=== PATIENT | female | born 1945 | race Caucasian/White ===

== ENCOUNTER → 2018-05-20 13:26 | Outpatient (CLI) | payer MEDICARE, BC, SELFPAY ==
[2018-05-20 16:24] LABS: Hep C Virus Ab w/Reflex Quant NEGATIVE s/c (NEGATIVE)
== END ==
PROVIDERS: PCP Internal Medicine; Visit Provider Internal Medicine
DX: M85.852 Other specified disorders of bone density and structure, left thigh (principal); Z78.0 Asymptomatic menopausal state; E07.9 Disorder of thyroid, unspecified; Z82.62 Family history of osteoporosis; R29.890 Loss of height; R94.5 Abnormal results of liver function studies
CPT/HCPCS: 36415; 77080; 86803

== ENCOUNTER → 2019-05-14 19:01 | Outpatient (CLI) | payer MEDICARE, BC, SELFPAY | PROVIDERS: PCP Internal Medicine; Visit Provider Physician Assistant | DX: J02.9 Acute pharyngitis, unspecified (principal) | CPT/HCPCS: 87070 ==

== ENCOUNTER → 2019-06-05 10:51 | Outpatient (CLI) | payer MEDICARE, BC, SELFPAY ==
--- NOTE | 2019-06-05 | DI.MG.S_ITS ---
BILATERAL DIGITAL SCREENING MAMMOGRAM 3D/2D WITH CAD: 06/05/2019 CLINICAL: Routine screening. Comparison is made to exams dated: 04/03/2017 mammogram, 03/22/2017 mammogram, 10/13/2015 mammogram, and 02/12/2012 mammogram - [facility]. There are scattered fibroglandular elements in both breasts. Current study was also evaluated with a Computer Aided Detection (CAD) system. There is an asymmetry in the right breast posterior depth lateral region seen on the craniocaudal view only. Finding is best noted on tomographic CC slice 21/57. There is possible architectural distortion associated with the asymmetry. No other significant masses, calcifications, or other findings are seen in either breast. IMPRESSION: INCOMPLETE: NEEDS ADDITIONAL IMAGING EVALUATION The asymmetry in the right breast is indeterminate. Additional views with possible ultrasound are recommended. This exam was interpreted at Station ID: [id number]. NOTE: For mammograms, a report in lay terms will be sent to the patient. Approximately 15% of breast malignancies will not be visualized mammographically. In the management of a palpable breast mass, a negative mammogram must not discourage biopsy of a clinically suspicious lesion. Electronically Signed By: Deandre Leal M.D. ecl/:06/06/2019 01:05:53 letter sent: Additional Imaging Needed ACR BI-RADS Category 0: Incomplete [id number]
== END ==
PROVIDERS: PCP Internal Medicine; Visit Provider Internal Medicine
DX: Z12.31 Encounter for screening mammogram for malignant neoplasm of breast (principal)
CPT/HCPCS: 77063; 77067

== ENCOUNTER → 2019-06-24 14:27 | Outpatient (CLI) | payer MEDICARE, BC, SELFPAY ==
--- NOTE | 2019-06-24 | DI.US.S_ITS ---
LIMITED ULTRASOUND OF RIGHT BREAST: 06/24/2019 CLINICAL: Additional evaluation requested from prior study. Comparison is made to exams dated: 06/24/2019 mammogram, 06/05/2019 mammogram, 04/03/2017 ultrasound, 04/03/2017 mammogram, 03/22/2017 mammogram, and 10/13/2015 mammogram - [facility]. Color flow and real-time ultrasound of the right breast 7-11 o'clock region were performed. Carballo scale images of the real-time examination were reviewed. No underlying breast mass or abnormality is identified. There is no ultrasound correlate for the previously noted asymmetry in the right breast posterior depth lateral region seen on the craniocaudal view only on comparison screening mammograms of 06/05/19, which persisted on additional views performed immediately prior to this exam on 06/24/19. IMPRESSION: PROBABLY BENIGN No ultrasound correlate for the asymmetry in the right breast posterior depth lateral region seen on screening and diagnostic mammography. A follow-up mammogram and possible ultrasound in 6 months is recommended to demonstrate stability. The patient is advised to monitor her breasts and to return sooner for re-evaluation should she feel anything grow or change. This exam was interpreted at Station ID: [id number]. Electronically Signed By: Deandre Leal M.D. ecl/:06/24/2019 15:37:52 letter sent: Followup Recommended Ultrasound BI-RADS: 3 Probably benign
--- NOTE | 2019-06-24 | DI.MG.S_ITS ---
UNILATERAL RIGHT DIGITAL DIAGNOSTIC MAMMOGRAM 3D/2D WITH ADDITIONAL VIEWS: 06/24/2019 CLINICAL: Additional evaluation requested from prior study. Comparison is made to exams dated: 06/05/2019 mammogram, 04/03/2017 mammogram, 03/22/2017 mammogram, and 04/03/2017 [facility]. There are scattered fibroglandular elements in right breast. Previously identified asymmetry in the right breast posterior depth lateral region seen on the craniocaudal view only on comparison screening mammograms of 06/05/19 persists with additional views. There is no convincing associated architectural distortion on additional views. IMPRESSION: INCOMPLETE: NEEDS ADDITIONAL IMAGING EVALUATION Previously identified asymmetry in the right breast posterior depth lateral region seen on the craniocaudal view only on comparison screening mammograms of 06/05/19 persists with additional views. A targeted ultrasound is recommended for further evaluation, and will be performed immediately following this exam. This exam was interpreted at Station ID: [id number]. NOTE: For mammograms, a report in lay terms will be sent to the patient. Approximately 15% of breast malignancies will not be visualized mammographically. In the management of a palpable breast mass, a negative mammogram must not discourage biopsy of a clinically suspicious lesion. Electronically Signed By: Deandre Leal M.D. ecl/:06/24/2019 15:19:37 ACR BI-RADS Category 0: Incomplete [id number]
== END ==
PROVIDERS: PCP Internal Medicine; Visit Provider Internal Medicine
DX: R92.8 Other abnormal and inconclusive findings on diagnostic imaging of breast (principal); N64.89 Other specified disorders of breast
CPT/HCPCS: 76642; 77065; G0279

== ENCOUNTER 2019-07-03 13:18 | Day surgery (SDC) | payer MEDICARE, BC, SELFPAY ==
--- NOTE | 2019-07-03 | PATH_ITS ---
[facility] Accession Number: [id number] . 01 Material submitted: . gastrointestinal site - BIOPSY OF JUANKI RING AT 35 CM . 01 Clinical history: . DYSPHAGIA, UNSPECIFIED . 02 Diagnosis: Biopsy of Schatzki Ring at 35 cm: Fragments of squamous epithelium with nonspecific reactive changes, negative for significant atypia. Minute fragments of glandular epithelium, negative for atypia. Negative for specialized metaplasia of Cevallos's type esophagus. Negative for squamous intraepithelial eosinophils. MRV/07/04/2019 . 02 Electronically signed: . Alex Haines MD, Pathologist NPI- [id number] . 01 Gross description: . BIOPSY OF SCHATZKI RING AT 35 CM: Received in formalin are 2 fragment(s) of manuel, soft tissue measuring 0.1 x 0.1 x 0.1 cm to 0.2 x 0.1 x 0.1 cm which is entirely submitted and submitted entirely in 1 cassette(s) /DMC /DMC . 02 Pathologist provided ICD-10: R13.10 . 02 CPT . 699797 Performed at: 01 [facility] [address], [place], [place] [id number] MD Deonte Palmer MD Phone: [phone] Performed at: 02 [facility] [address] [place], [place] [id number] MD Noa Kumar MD Phone: [phone]
[2019-07-03 13:48] VITALS: BP 120/80; PULSE 77; RESP 12; TEMP 36.9; O2SAT 96; BMI 23.9
--- NOTE | 2019-07-03 14:10 | PM.PREOP ---
Pre-operative Note Interval Note History & Physical reviewed/Exam performed by Physician: Yes Changes to H&P: No ASA Class (for procedural sedation): II
[2019-07-03] MEDS: SODIUM CHLORIDE 0.9% 1,000 ML 200 ML IV (14:13)
[2019-07-03] MEDS: LIDOCAINE 4% SOLN 50 ML 20 ML TOP (14:25)
[2019-07-03] MEDS: fentaNYL 250 MCG/5 ML INJ IV (14:30)
[2019-07-03] MEDS: MIDAZOLAM 5 MG/5 ML VIAL IV ×2 (14:30→14:45)
--- NOTE | 2019-07-03 14:56 | PM.OP.ENDO ---
Operative Date/Time/Diagnoses Date of procedure: 07/03/19 Time of procedure: 14:56 Pre-op diagnosis: Schatzki ring Post-op diagnosis: same Procedure & Clinicians Study performed: Esophagoduodenoscopy Same procedure as scheduled: Yes Indications: The patient is a 73-year-old woman with a history of a hiatal hernia and gastroesophageal reflux wound secondarily developed a Schatzki ring. She was previously dilated 2 years ago and recently had an episode of of food impaction she. She presents for EGD and dilation. Surgeon: Josh Llanos Procedure Notes SCOAP/Timeout: performed Procedure in detail: The scope was carefully inserted into the mouth and passed into the posterior oropharynx. The scope was carefully advanced down the esophagus and into the stomach. The stomach was inspected and the pylorus was intubated. There was no evidence of ulceration. The scope was retroflexed within the stomach an that demonstrated a hiatal hernia. The scope was carefully withdrawn into the distal esophagus where a Schatzki ring was identified at 35 cm. Several biopsies of the ring taken with forceps. There was stenosis at the ring however it was able to accommodate the caliber of the scope. We selected a 20 mm esophageal pneumatic dilator. The balloon placed through the ring and then insufflated and held. After desufflating the balloon the ring was examined and there were some small mucosal tears in the ring consistent with dilation. The tissue was found to be hemostatic. The stomach was desufflated and the scope was carefully withdrawn. Sedation minutes: 27 Findings: hiatal hernia and stricture (Schatzki ring 35 cm from incisiors) Specimen(s): other (Schatzki ring ) Impression: Schatzki ring, hiatal hernia Post-procedure Recommendations: Reflux diet Follow up: as needed Disposition: same day surgery
[2019-07-03 15:03] VITALS: BP 129/78; PULSE 80; RESP 15; TEMP 35.7; O2SAT 95
[2019-07-03 15:08] VITALS: BP 136/76; PULSE 78; RESP 20; O2SAT 94
[2019-07-03 15:23] VITALS: BP 117/69; PULSE 73; RESP 12; TEMP 36.3; O2SAT 99
--- NOTE | 2019-07-03 15:35 | SUR.PHASEII ---
1523 pt reported 3/10 abd pain. Abd soft. Call light wthin reach. Spouse at bedside.
== END 2019-07-03 15:45 | disposition home or self-care (01) ==
PROVIDERS: PCP Internal Medicine; Visit Provider Surgery
PROC: 0DJ08ZZ Inspection of Upper Intestinal Tract, Via Natural or Artificial Opening Endoscopic (ICD-10-PCS; CPT 43235; principal; 2019-07-03 14:30)
DX: K22.2 Esophageal obstruction (principal); E11.9 Type 2 diabetes mellitus without complications; Z79.84 Long term (current) use of oral hypoglycemic drugs; K21.9 Gastro-esophageal reflux disease without esophagitis; K44.9 Diaphragmatic hernia without obstruction or gangrene
CPT/HCPCS: 43249; 88305; 99152; J2250; J3010

== ENCOUNTER 2019-07-16 08:38 | Emergency (ER) | payer MEDICARE, BC, SELFPAY ==
[2019-07-16 08:43] VITALS: BP 153/80; PULSE 61; RESP 15; TEMP 36.2; O2SAT 99; BMI 23.6
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
== END 2019-07-16 09:39 | disposition home or self-care (01) ==
PROVIDERS: Emergency Provider Emergency Medicine; PCP Internal Medicine
DX: S09.90XA Unspecified injury of head, initial encounter (principal); V18.0XXA Pedal cycle driver injured in noncollision transport accident in nontraffic accident, initial encounter
CPT/HCPCS: 99282

== ENCOUNTER 2019-07-22 06:52 | Day surgery (SDC) | payer MEDICARE, BC, SELFPAY ==
[2019-07-22] MEDS: PROPARACAINE 0.5% OPHTH SOL 2 DROPS EYE-OP (07:12)
[2019-07-22] MEDS: CATARACT EYE COMPOUND (10 DROPS/SYRINGE) 3 DROPS EYE-OP (07:52)
[2019-07-22 07:58] VITALS: BP 123/72; PULSE 71; RESP 99; TEMP 36.6; BMI 23.6
--- NOTE | 2019-07-22 08:52 | PM.PREOP ---
Pre-operative Note Interval Note History & Physical reviewed/Exam performed by Physician: No Changes to H&P: No
--- NOTE | 2019-07-22 08:52 | PM.OP.1 ---
Operative Date/Time/Diagnoses Pre-op diagnosis: Nuclear cataract right eye Procedure & Clinicians Procedure: Cataract Surgery Same procedure as scheduled: Yes Surgeon: Kirk Marrero Anesthesia Type: MAC +/- and Sedation Operative Notes Procedure in detail: Patient brought to the operating suite. Tetracaine drops placed in the right eye. Patient was prepped and draped in sterile manner. Wire lid speculum was placed in the eye. Betadine drops were placed on the eye. This was irrigated. Lidocaine jelly was placed on the eye. A paracentesis port was created with a side-port blade. 0.1 mL 1% preservative free lidocaine was injected into the anterior chamber. The anterior chamber was deepened with viscoelastic. 2.6 mm keratome was used to create a temporal clear corneal incision. Cystotome and Utrata forceps were used to create continuous tear capsulorrhexis. Balanced salt solution was used to hydro dissect the nucleus. The Miloop was used to crack the nucleous. The phacoemulsification handpiece was inserted and the nucleus was removed using the stop and chop technique. The irrigation aspiration handpiece was inserted and the remaining cortex was removed. Anterior chamber was deepened with viscoelastic. An Vincent ZCB00 intraocular lens with a power of 17.0 was injected into the capsular bag. Irrigation aspiration handpiece was inserted and the remaining viscoelastic was removed. Incision was hydrated with balanced salt solution and found to be leak free with pressure with Weck-Vandana sponges. 0.1 mL Vigamox injected anterior chamber. 0.3 mL Kenalog 10 mg was injected subconjunctivally. Lid speculum was removed. The patient left the operating room in excellent condition. Complications: none Post-operative Condition: stable Disposition: same day surgery
[2019-07-22] MEDS: LIDOCAINE JELLY 2% 5 ML 1 APPLIC TOP (09:17)
[2019-07-22] MEDS: MOXIFLOXACIN INJ 5 MG/ML VIAL EYE-OP (09:17)
[2019-07-22] MEDS: CHONDROIDTIN/SOD HYALURONATE 1.05 ML SYRINGE INTRAOCULA (09:17)
[2019-07-22] MEDS: BALANCED SALT IRRIG SOLN NO.2 500 ML, EPINEPHrine 1 MG IRR (09:18)
[2019-07-22] MEDS: TRIAMCINOLONE 50 MG/5 ML VIAL INJ (09:18)
[2019-07-22] MEDS: PHENYLEPHRINE/LIDOCAINE VIAL (OR) 0.2 ML EYE-OP (09:18)
[2019-07-22] MEDS: TETRACAINE 0.5% OPHTH DROPS 4 ML 2 DROPS EYE-OP (09:18)
[2019-07-22 09:25] VITALS: BP 109/73; PULSE 71; RESP 16; TEMP 36.8; O2SAT 99
== END 2019-07-22 09:39 | disposition home or self-care (01) ==
LOC: OR 06:53
PROVIDERS: PCP Internal Medicine; Visit Provider Ophthalmology
PROC: (CPT 66984; principal; 2019-07-22 08:45)
DX: H25.11 Age-related nuclear cataract, right eye (principal); E11.9 Type 2 diabetes mellitus without complications; Z79.84 Long term (current) use of oral hypoglycemic drugs
CPT/HCPCS: 66984; J0171; J2250; J3010; J3301

== ENCOUNTER 2019-07-29 06:22 | Day surgery (SDC) | payer MEDICARE, BC, SELFPAY ==
[2019-07-29] MEDS: PROPARACAINE 0.5% OPHTH SOL 2 DROPS EYE-OP (07:14)
[2019-07-29] MEDS: CATARACT EYE COMPOUND (10 DROPS/SYRINGE) 3 DROPS EYE-OP ×3 (07:15→07:28)
[2019-07-29 07:23] VITALS: BP 133/78; PULSE 79; RESP 16; TEMP 36.4; O2SAT 99; BMI 24.3
--- NOTE | 2019-07-29 07:37 | PM.PREOP ---
Pre-operative Note Interval Note History & Physical reviewed/Exam performed by Physician: No Changes to H&P: No
--- NOTE | 2019-07-29 07:37 | PM.OP.1 ---
Operative Date/Time/Diagnoses Pre-op diagnosis: Nuclear Cataract Left eye Post-op diagnosis: same Procedure & Clinicians Surgeon: Kirk Marrero Anesthesia Type: MAC +/- and Sedation Operative Notes Procedure in detail: Patient brought to the operating suite. Tetracaine drops placed in the left eye. Patient was prepped and draped in sterile manner. Wire lid speculum was placed in the eye. Betadine drops were placed on the eye. This was irrigated. Lidocaine jelly was placed on the eye. A paracentesis port was created with a side-port blade. 0.1 mL 1% preservative free lidocaine was injected into the anterior chamber. The anterior chamber was deepened with viscoelastic. 2.6 mm keratome was used to create a temporal clear corneal incision. Cystotome and Utrata forceps were used to create continuous tear capsulorrhexis. Balanced salt solution was used to hydro dissect the nucleus. The phacoemulsification handpiece was inserted and the nucleus was removed using the stop and chop technique. The irrigation aspiration handpiece was inserted and the remaining cortex was removed. Anterior chamber was deepened with viscoelastic. An Vincent ZCB00 intraocular lens with a power of 20.5 was injected into the capsular bag. Irrigation aspiration handpiece was inserted and the remaining viscoelastic was removed. Incision was hydrated with balanced salt solution and found to be leak free with pressure with Weck-Vandana sponges. 0.1 mL Vigamox injected anterior chamber. 0.3 mL Kenalog 10 mg was injected subconjunctivally. Lid speculum was removed. The patient left the operating room in excellent condition. Complications: none Post-operative Condition: stable Disposition: same day surgery
[2019-07-29] MEDS: MOXIFLOXACIN INJ 5 MG/ML VIAL EYE-OP (07:49)
[2019-07-29] MEDS: TRIAMCINOLONE 50 MG/5 ML VIAL INJ (07:50)
[2019-07-29] MEDS: TETRACAINE 0.5% OPHTH DROPS 4 ML 2 DROPS EYE-OP (07:50)
[2019-07-29] MEDS: CHONDROIDTIN/SOD HYALURONATE 1.05 ML SYRINGE INTRAOCULA (07:50)
[2019-07-29] MEDS: LIDOCAINE JELLY 2% 5 ML 1 APPLIC TOP (07:50)
[2019-07-29] MEDS: PHENYLEPHRINE/LIDOCAINE VIAL (OR) 0.2 ML EYE-OP (07:51)
[2019-07-29] MEDS: BALANCED SALT IRRIG SOLN NO.2 500 ML, EPINEPHrine 1 MG IRR (07:51)
[2019-07-29 07:58] VITALS: BP 104/66; PULSE 73; RESP 12; TEMP 36.6; O2SAT 98
== END 2019-07-29 08:10 | disposition home or self-care (01) ==
LOC: OR 06:25
PROVIDERS: PCP Internal Medicine; Visit Provider Ophthalmology
PROC: (CPT 66984; principal; 2019-07-29 07:45)
DX: H25.12 Age-related nuclear cataract, left eye (principal); E11.9 Type 2 diabetes mellitus without complications; Z79.84 Long term (current) use of oral hypoglycemic drugs
CPT/HCPCS: 66984; J0171; J2250; J3010; J3301

== ENCOUNTER → 2021-06-15 09:19 | Outpatient (CLI) | payer MEDICARE, BC, SELFPAY ==
[2021-06-15 10:45] LABS: COVID19 -Nasal RAPID Negative (Negative)
== END ==
PROVIDERS: PCP Internal Medicine; Visit Provider Surgery
DX: Z01.812 Encounter for preprocedural laboratory examination (principal); Z20.822 Contact with and (suspected) exposure to COVID-19
CPT/HCPCS: 87635; C9803

== ENCOUNTER 2021-06-16 13:17 | Day surgery (SDC) | payer MEDICARE, BC, SELFPAY ==
[2021-06-16] VITALS (8 sets, daily range): BP systolic 94–125; BP diastolic 39–73; PULSE 69–81; RESP 13–18; TEMP 36.1–36.6; O2SAT 95–99; BMI 26.4
--- NOTE | 2021-06-16 13:45 | PM.PREOP ---
Pre-operative Note Interval Note History & Physical reviewed/Exam performed by Physician: Yes Changes to H&P: No
[2021-06-16] MEDS: LACTATED RINGERS 1,000 ML 200 ML IV (13:53)
[2021-06-16] MEDS: MIDAZOLAM 5 MG/5 ML VIAL IV (13:59)
[2021-06-16] MEDS: LIDOCAINE 4% SOLN 50 ML 20 ML TOP (13:59)
[2021-06-16] MEDS: fentaNYL 250 MCG/5 ML INJ IV (14:00)
--- NOTE | 2021-06-16 14:21 | PM.OP.ENDO ---
Operative Date/Time/Diagnoses Date of procedure: 06/16/21 Time of procedure: 14:21 Pre-op diagnosis: Esophageal stricture Post-op diagnosis: same Procedure & Clinicians Study performed: Esophagoduodenoscopy with dilatation Same procedure as scheduled: Yes Indications: Esophageal dysphagia history of esophageal stricture and dilation Surgeon: Josh Llanso Procedure Notes Procedure in detail: Patient placed in left lateral decubitus position. Time out was performed. Procedural sedation was administered with Versed and Fentanyl. A bite block was placed. the scope was inserted into the mouth and advanced through the esophagus. The adult EGD scope barely of fit into the stomach there was a stricture at the level of the GE junction. The pylorus was intubated and the duodenum was normal to the 2nd portion. The scope was retroflexed within the stomach and there was a moderate size hiatal hernia. No ulcers, or gastritis. The scope was withdrawn into the esophagus the Z line was seen at 40 cm from the incisions. The esophageal stricture was dilated with the balloon dilator to 20 mm of H20 pressue. The scope now easily passed in and out of the stomach. Stomach was desufflated and scope removed. Patient tolerated procedure well. Specimen(s): none sent Complications: none Impression: esophageal stricture Post-procedure Plan for aftercare: EGD and dilation as needed Disposition: same day surgery
== END 2021-06-16 15:00 | disposition home or self-care (01) ==
PROVIDERS: PCP Internal Medicine; Referring Provider Surgery; Visit Provider Surgery
PROC: 0DJ08ZZ Inspection of Upper Intestinal Tract, Via Natural or Artificial Opening Endoscopic (ICD-10-PCS; CPT 43235; principal; 2021-06-16 14:30)
DX: K22.2 Esophageal obstruction (principal); E11.9 Type 2 diabetes mellitus without complications; Z79.84 Long term (current) use of oral hypoglycemic drugs
CPT/HCPCS: 43249; J2250; J3010

== ENCOUNTER → 2022-05-26 13:53 | Outpatient (CLI) | payer MEDICARE, BC, SELFPAY | DX: E11.9 Type 2 diabetes mellitus without complications (principal) | CPT/HCPCS: 36415; 83036 ==

== ENCOUNTER → 2023-06-25 08:54 | Outpatient (CLI) | payer MEDICARE, BC, SELFPAY ==
[2023-06-25 09:43] LABS: Add Manual Diff / Slide Review NO; Basophils Absolute Auto 0 /uL (0-100); Basophils Percent Auto 1.1 % (0-2); Eosinophils Absolute Auto 100 /uL (0-450); Eosinophils Percent Auto 2.1 % (2-4); Hematocrit 37.4 % (36-46); Hemoglobin 12.9 g/dL (12.0-16.0); Lymphocytes Absolute Auto 1200 /uL (1100-4500); Lymphocytes Percent Auto 28.2 % (25-40); Mean Corpuscular HGB Conc 34.6 % (30-36); Mean Corpuscular Hemoglobin 31.4 PG (26-34); Mean Corpuscular Volume 90.8 fL (80-100); Monocytes Absolute Auto 500 /uL (0-900); Monocytes Percent Auto 10.6 % (3-14); Neutrophils Absolute Auto 2500 /uL (1500-7000); Platelet Count 227 X10^3/uL (150-400); Red Blood Cell Count 4.12 X10^6/uL (4.0-5.2); White Blood Cell Count 4.3 X10^3/uL (4.5-11.0)
[2023-06-25 10:09] LABS: Alanine Aminotransferase 46 IU/L (<35); Albumin 4.2 g/dL (3.5-5.0); Albumin Globulin Ratio 1.3 (1.0-2.8); Alkaline Phosphatase 71 U/L (38-126); Aspartate Aminotransferase 43 IU/L (14-36); BUN Creatinine Ratio 16.1 (6-22); Blood Urea Nitrogen 9 mg/dL (7-17); Calcium 9.7 mg/dL (8.4-10.2); Carbon Dioxide 28 mmol/L (22-32); Chloride 100 mmol/L (98-107); Cholesterol 161 mg/dL (140-199); Estimated Glomerular Filt Rate > 60 mL/min (>60); Globulin 3.3 g/dL (1.7-4.1); Glucose 128 mg/dL (80-110); HDL Cholesterol 64 mg/dL (40-60); HEMOLYSIS < 15 (0-50); LDL Cholesterol Calculated 90 mg/dL (<100); Potassium 4.5 mmol/L (3.4-5.1); Sodium 133 mmol/L (137-145); Total Protein 7.5 g/dL (6.3-8.2); Triglycerides 37 mg/dL (35-150)
[2023-06-25 10:10] LABS: Appearance Urine UA CLEAR; Bilirubin Urine UA NEGATIVE (NEGATIVE); Color Urine UA YELLOW; Glucose Urine UA NEGATIVE (Negative); Ketones Urine UA NEGATIVE (NEGATIVE); Leukocyte Esterase Urine UA NEGATIVE (NEGATIVE); Nitrite Urine UA NEGATIVE (Negative); Occult Blood Urine UA NEGATIVE (Negative); Protein Urine UA NEGATIVE (Negative); Urobilinogen Urine UA 0.2 E.U./dL (0.2)
[2023-06-25 10:21] LABS: pH Urine UA 7.5 (4.5-8.0)
[2023-06-25 10:26] LABS: Free T3, Triiodothyronine Free 2.57 pg/mL (2.77-5.27)
[2023-06-25 10:34] LABS: Bacteria Urine None Seen; Culture Indicated Urine Cult Not Indicated; RBC Urine None Seen (0-5/HPF); Squamous Epithelial Cell Urine None Seen (0-5/HPF); WBC Urine None Seen (0-5/HPF)
[2023-06-25 10:39] LABS: Vitamin D 25 Hydroxy (D3) 44.7 ng/mL (30.0-100.0)
[2023-06-25 10:52] LABS: Thyroid Stimulating Hormone < 0.015 uIU/mL (0.47-4.68)
[2023-06-25 11:31] LABS: Hemoglobin A1C% w Est Avg Glu 5.9 % (4.0-6.0)
== END ==
PROVIDERS: Referring Provider Family Medicine Sports Medicine; Visit Provider Family Medicine Sports Medicine
DX: E55.9 Vitamin D deficiency, unspecified (principal); R73.01 Impaired fasting glucose; E03.9 Hypothyroidism, unspecified; N39.0 Urinary tract infection, site not specified; E78.5 Hyperlipidemia, unspecified
CPT/HCPCS: 36415; 80053; 80061; 81001; 82306; 83036; 84439; 84443; 84481; 85025

== ENCOUNTER → 2024-06-20 11:33 | Outpatient (CLI) | payer MEDICARE, BC, SELFPAY ==
[2024-06-20 12:43] LABS: Appearance Urine UA CLEAR; Bilirubin Urine UA NEGATIVE (NEGATIVE); Color Urine UA YELLOW; Glucose Urine UA NEGATIVE (Negative); Ketones Urine UA TRACE (NEGATIVE); Leukocyte Esterase Urine UA 3+ (NEGATIVE); Nitrite Urine UA NEGATIVE (Negative); Occult Blood Urine UA NEGATIVE (Negative); Protein Urine UA NEGATIVE (Negative)
[2024-06-20 12:47] LABS: Add Manual Diff / Slide Review NO; Basophils Absolute Auto 0 /uL (0-100); Basophils Percent Auto 1.1 % (0-2); Eosinophils Absolute Auto 0 /uL (0-450); Eosinophils Percent Auto 1.1 % (2-4); Hematocrit 36.5 % (36-46); Hemoglobin 12.5 g/dL (12.0-16.0); Lymphocytes Absolute Auto 1200 /uL (1100-4500); Lymphocytes Percent Auto 28.2 % (25-40); Mean Corpuscular HGB Conc 34.3 % (30-36); Mean Corpuscular Hemoglobin 31.9 PG (26-34); Monocytes Absolute Auto 400 /uL (0-900); Monocytes Percent Auto 10.4 % (3-14); Neutrophils Absolute Auto 2500 /uL (1500-7000); Neutrophils Percent Auto 59.2 % (50-75); Platelet Count 235 X10^3/uL (150-400); Red Blood Cell Count 3.92 X10^6/uL (4.0-5.2); Red Cell Distribution Width 13.1 % (11.6-14.8); White Blood Cell Count 4.3 X10^3/uL (4.5-11.0)
[2024-06-20 12:50] LABS: Bacteria Urine Few (2-10); Culture Indicated Urine Specimen Cultured; RBC Urine None Seen (0-5/HPF); Squamous Epithelial Cell Urine 1-5 /HPF (0-5/HPF); Transitional Epi Cells Urine 1-5/HPF (0-5/HPF); Urine Volume 10mL (spun); WBC Urine 10-30/HPF (0-5/HPF)
[2024-06-20 12:54] LABS: Hemoglobin A1C% w Est Avg Glu 6.1 % (4.0-6.0)
[2024-06-20 13:08] LABS: Alanine Aminotransferase 27 IU/L (<35); Albumin 4.5 g/dL (3.5-5.0); Albumin Globulin Ratio 1.7 (1.0-2.8); Alkaline Phosphatase 70 U/L (38-126); Aspartate Aminotransferase 32 IU/L (14-36); BUN Creatinine Ratio 14.7 (6-22); Bilirubin Total 1.1 mg/dL (0.2-1.3); Blood Urea Nitrogen 10 mg/dL (7-17); Calcium 9.6 mg/dL (8.4-10.2); Carbon Dioxide 24 mmol/L (22-32); Chloride 99 mmol/L (98-107); Cholesterol 176 mg/dL (140-199); Estimated Glomerular Filt Rate > 60 mL/min (>60); Globulin 2.7 g/dL (1.7-4.1); Glucose 135 mg/dL (80-110); HDL Cholesterol 72 mg/dL (40-60); HEMOLYSIS < 15 (0-50); LDL Cholesterol Calculated 94 mg/dL (<100); Potassium 4.2 mmol/L (3.4-5.1); Sodium 130 mmol/L (137-145); Total Protein 7.2 g/dL (6.3-8.2); Triglycerides 52 mg/dL (35-150)
[2024-06-20 13:25] LABS: Free T4, Direct Thyroxine 1.24 ng/dL (0.78-2.19)
[2024-06-20 13:39] LABS: Thyroid Stimulating Hormone 0.671 uIU/mL (0.47-4.68)
[2024-06-20 14:31] LABS: Vitamin D 25 Hydroxy (D3) 35.4 ng/mL (30.0-100.0)
== END ==
LOC: LAB 11:36
PROVIDERS: PCP Family Medicine Sports Medicine; Referring Provider Family Medicine Sports Medicine; Visit Provider Family Medicine Sports Medicine
DX: R73.01 Impaired fasting glucose; E03.9 Hypothyroidism, unspecified; E55.9 Vitamin D deficiency, unspecified; N39.0 Urinary tract infection, site not specified; R94.6 Abnormal results of thyroid function studies; Z13.228 Encounter for screening for other metabolic disorders; E61.2 Magnesium deficiency; E78.5 Hyperlipidemia, unspecified; R79.9 Abnormal finding of blood chemistry, unspecified
CPT/HCPCS: 36415; 80053; 80061; 81001; 82306; 83036; 84439; 84443; 84481; 85025; 87086

== ENCOUNTER 2024-06-20 11:37 | Day surgery (SDC) | payer MEDICARE, BC, SELFPAY ==
[2024-06-20 12:43] VITALS: BP 154/79; PULSE 76; RESP 16; TEMP 36.2; O2SAT 99
--- NOTE | 2024-06-20 12:48 | PM.HP.1 ---
History of Present Illness History of Present Illness Date Patient Seen: 06/20/24 Time Patient Seen: 12:48 [place] [facility] [place]: 78-year-old woman history of esophageal stricture here for upper endoscopy with dilation. Last dilation 2020 to 20 mm. No interval change in health since last seen. FORMERLY [facility], [facility]–1983 Medical History Postmenopause atrophic vaginitis Prolapsed, uterovaginal, incomplete Actinic keratosis (~2014) Osteopenia (~2014) Mumps (~1952) Measles (~1952) Chicken pox (~1952) Esophageal ring (~1994) Hypothyroidism (~1989) [place] esophagus Osteoarthritis (~2007) Elevated cholesterol GERD with stricture (~1989) Diabetes Dysphagia Surgical History Anesthesia History of cataract extraction History of esophagogastroduodenoscopy (EGD) (~06/16/21) H/O total knee replacement H/O total hip arthroplasty Family History Father Diabetes mellitus History of heart disease Hyperlipidemia Mother History of heart disease Brother Congestive heart failure Brother Hyperlipidemia Grandfather Stroke Grandmother Hypertension Grandfather History of heart disease Grandmother History of heart disease Social History household members: spouse Smoking Status: Never smoker Meds Home Medications and Allergies Home Medications Medication Instructions Recorded Confirmed Type atorvastatin 40 mg tablet 40 mg PO BEDTIME 07/03/19 06/20/24 History calcium carbonate (Calcium 500) 500 mg PO BID 07/03/19 06/20/24 History cholecalciferol (vitamin D3) 25 1,000 unit PO BID 07/03/19 06/20/24 History mcg (1,000 unit) capsule (Vitamin D3) acetaminophen 500 mg capsule 500 mg PO ONCE PRN Pain, Mild 05/15/24 06/20/24 History dextromethorphan-guaifenesin 20 1 tab PO ONCE PRN Cough 05/15/24 06/20/24 History mg-400 mg tablet diphenhydramine HCl 50 mg capsule 50 mg PO BEDTIME 05/15/24 06/20/24 History docusate sodium [Colace] 1 cap PO PRN Constipation 05/15/24 05/15/24 History glimepiride 2 mg tablet 2 mg PO .BID w/meals 05/15/24 06/20/24 History kluoxacuzzz-twlxmojob-wwu C-Mn PO BID 05/15/24 05/21/24 History [Glucosamine Chondroitin MaxStr] guaifenesin 400 mg tablet 400 mg PO ONCE PRN Cough 05/15/24 06/20/24 History metformin 1,000 mg tablet 1,000 mg PO BIDWMEAL 05/15/24 06/20/24 History chlorpheniramine maleate 4 mg 4 mg PO Q8H PRN Allergic Symptoms 05/21/24 06/20/24 History tablet (Allergy (chlorpheniramine)) diclofenac sodium 1 % topical gel 2 g topical QID 05/21/24 06/20/24 History (Voltaren Arthritis Pain) levothyroxine 125 mcg tablet 125 mcg PO DAILY 05/21/24 06/20/24 History loperamide 2 mg capsule 2 mg PO Q6H 05/21/24 06/20/24 History (Anti-Diarrheal (loperamide)) Allergies Allergy/AdvReac Type Severity Reaction Status Date / Time No Known Drug Allergies Allergy Verified 06/20/24 12:37 Exam Vital Signs (past 8 hours): - 06/20/24 12:43 Temperature 97.2 F L Pulse Rate 76 Respiratory Rate 16 Blood Pressure 154/79 H Pulse Oximetry 99 Oxygen Delivery Method Room Air Oxygen Delivery Method Room Air Narrative Exam Narrative: General adult woman alert oriented no acute distress Chest nonlabored respiration Extremities warm well perfused Assessment & Plan Assessment & Plan narrative: 78-year-old woman history of esophageal stricture with recurrent esophageal dysphagia here for diagnostic upper endoscopy with dilation. Overview of procedure once again discussed. Procedural risks including hemorrhage, and esophageal injury reviewed. Questions have been answered she is in agreement with the plan and provides her consent to proceed. Time-Based Coding :: [TOTAL MINUTES] spent with patient and on the chart (including review of chart, obtaining history, exam, reviewing outside data, placing orders, documenting exam and treatment plan, and counseling patient) on [DATE].
[2024-06-20] MEDS: LACTATED RINGERS 1,000 ML 42 ML IV (12:58)
--- NOTE | 2024-06-20 13:21 | SUR.OPER ---
egd scope 047
[2024-06-20 13:37] VITALS: BP 131/77; PULSE 80; RESP 16; TEMP 36.1; O2SAT 98
[2024-06-20 13:40] VITALS: BP 114/75; PULSE 73; RESP 16; TEMP 36.6; O2SAT 97
--- NOTE | 2024-06-20 13:49 | PM.OP.EGD ---
Operative Date/Time/Diagnoses Date of procedure: 06/20/24 Time of procedure: 13:49 Pre-op diagnosis: Esophageal stricture Post-op diagnosis: same Procedure & Clinicians Study performed: Esophagogastroduodenoscopy with dilation Same procedure as scheduled: Yes Indications: Symptomatic esophageal stricture Surgeon: Josh Llanos Procedure Notes Procedure in detail: The history and physical was performed/updated and the patient is ASA class is 2. The procedure was discussed in detail with the patient. Potential risks complications including infection, bleeding, missed diagnosis, perforation, need for surgery, and were explained. Their questions were answered and informed consent was obtained. Patient placed in left lateral decubitus position. Time out was performed. Procedural sedation was administered by Anesthesia. A bite block was placed. the scope was inserted into the mouth and advanced through the esophagus and into the stomach. The pylorus was intubated and the duodenum was examined to the 2nd portion. The scope was then withdrawn into the stomach and was retroflexed. The stomach was decompressed and scope was withdrawn slowly through the esophagus. FINDINGS Distal esophageal stricture GE junction. Scope passes through but clearly narrow. Balloon dilated to 20 mm under direct visualization. The patient tolerated the procedure well and will be discharged when they meet criteria. Specimen(s): none sent Impression: Esophageal stricture Post-procedure Plan for aftercare: Follow up as needed Disposition: same day surgery
== END 2024-06-20 13:54 | disposition home or self-care (01) ==
PROVIDERS: PCP Family Medicine Sports Medicine; Referring Provider Surgery; Visit Provider Surgery
PROC: 0DJ08ZZ Inspection of Upper Intestinal Tract, Via Natural or Artificial Opening Endoscopic (ICD-10-PCS; CPT 43235; principal; 2024-06-20 13:30)
DX: K22.2 Esophageal obstruction (principal); N39.0 Urinary tract infection, site not specified; R73.01 Impaired fasting glucose; E03.9 Hypothyroidism, unspecified; E55.9 Vitamin D deficiency, unspecified; R94.6 Abnormal results of thyroid function studies; Z13.228 Encounter for screening for other metabolic disorders; E61.2 Magnesium deficiency; E78.2 Mixed hyperlipidemia; R79.9 Abnormal finding of blood chemistry, unspecified
CPT/HCPCS: 43249; 36415; 80053; 80061; 81001; 82306; 82962; 83036; 84439; 84443; 84481; 85025; 87086; J2704

== ENCOUNTER 2025-07-10 11:13 | Day surgery (SDC) | payer MEDICARE, BC, SELFPAY ==
--- NOTE | 2025-07-10 | PATH_ITS ---
[facility] Accession Number: [id number] No. of containers..01 Tissue . 01 Material submitted: . gastrointestinal site - ANTRUM . 01 Clinical history: . RULE OUT H.PYLORI . 01 Diagnosis: GASTRIC ANTRUM, BIOPSY: Gastric antral and body mucosa with no diagnostic abnormality. No evidence of Helicobacter organisms on H/E stain. Negative for intestinal metaplasia. Negative for dysplasia or malignancy. [facility] 07/22/2025 1737 Local . 01 Electronically signed: . Lamine Mart MD, PhD, Pathologist NPI- [id number] . 01 Gross description: . Received is one formalin-filled container labeled with the patient's name and labeled antrum, are two fragments of manuel, soft tissue which range in size from 0.2 x 0.2 x 0.2 cm to 0.3 x 0.3 x 0.3 cm. All fragments are totally submitted in cassette A1. ([id number]) /TORIN 07/18/2025 2317 Local . 01 Pathologist provided ICD-10: R10.13 . 01 CPT . 717857 Specimen Comment: A courtesy copy of this report has been sent to [facility] Pathology Performed at: [address] [facility], [place], [place] [id number] MD Deonte Palmer MD Phone: [phone]
--- NOTE | 2025-07-10 06:21 | PM.PREOP ---
Pre-operative Note Interval Note History & Physical reviewed/Exam performed by Physician: Yes Changes to H&P: No ASA Class (for procedural sedation): II
[2025-07-10] MEDS: LACTATED RINGERS 1,000 ML 42 ML IV (12:02)
[2025-07-10 12:14] VITALS: BP 147/86; PULSE 147; RESP 16; TEMP 36.6; O2SAT 99; BMI 23.8
--- NOTE | 2025-07-10 14:18 | PM.OP.EGD ---
Operative Date/Time/Diagnoses Date of procedure: 07/10/25 Time of procedure: 14:30 Pre-op diagnosis: Esophageal stricture Post-op diagnosis: same Procedure & Clinicians Study performed: EGD with balloon dilation esophageal stricture Same procedure(s) as scheduled: Yes Indications: 79yo F, dysphagia, h/o esophageal stricture Surgeon: Alek Minor Anesthesia Type: MAC +/- Procedure Notes SCOAP/Timeout: Performed Procedure in detail: EGD Informed consent was obtained. The procedure, its risks, benefits, and alternatives were discussed. Patient understood and agreed to proceed. The patient was placed in the left lateral decubitus position with head elevated. Sedation given per anesthesia. The video endoscope was inserted into the oropharynx and guided under direct vision into the esophagus, stomach, and duodenum which were carefully examined. The scope was retroflexed to examine the hiatus and gastroesophageal junction. Antral biopsies were obtained for Helicobacter pylori. The patient tolerated the procedure very well. There were no apparent complications. Significant EGD findings: Z-line noted at: 38cm Benign appearing esophageal stricture noted at distal esophagus as expected. Scope passed easily. H/O dilation to 20mm. Balloon dilation performed under direct vision to 18mm, 19mm, 20mm using 3, 4.5 and 6 PSI. Minimal bleeding at stricture, hemostatic. Stricture visibly larger after dilation. Duodenum normal Mild antral gastritis, biopsies taken for hpylori No esophagitis No hiatal hernia Findings: gastritis and stricture Specimen(s): other (Antral biopsies for hpylori) Complications: none Impression: Benign appearing distal esophageal stricture, dilated to 20mm Post-procedure Recommendations: Will call with biopsy results Plan for aftercare: PACU then floor Follow up: as needed Disposition: PACU
[2025-07-10 14:33] VITALS: BP 161/77; PULSE 77; RESP 17; TEMP 36.6; O2SAT 97
[2025-07-10 14:35] VITALS: BP 153/81; PULSE 77; RESP 17; O2SAT 97
[2025-07-10 14:40] VITALS: BP 148/72; PULSE 75; RESP 20; O2SAT 98
[2025-07-10 14:45] VITALS: BP 146/75; PULSE 70; RESP 20; TEMP 36.8; O2SAT 100
== END 2025-07-10 15:00 | disposition home or self-care (01) ==
PROVIDERS: PCP Family Medicine Sports Medicine; Referring Provider Family Medicine Sports Medicine; Visit Provider Surgery
PROC: 0DJ08ZZ Inspection of Upper Intestinal Tract, Via Natural or Artificial Opening Endoscopic (ICD-10-PCS; CPT 43249; principal; 2025-07-10 13:00)
DX: K22.2 Esophageal obstruction (principal); R13.10 Dysphagia, unspecified; K29.70 Gastritis, unspecified, without bleeding
CPT/HCPCS: 43249; 43239; 82962; J2704

== ENCOUNTER → 2025-07-28 07:54 | Outpatient (CLI) | payer MEDICARE, BC, SELFPAY ==
[2025-07-28 08:28] LABS: Add Manual Diff / Slide Review NO; Hematocrit 35.4 % (36-46); Hemoglobin 12.2 g/dL (12.0-16.0); Lymphocytes Absolute Auto 1100 /uL (1100-4500); Mean Corpuscular HGB Conc 34.6 % (30-36); Mean Corpuscular Hemoglobin 30.3 PG (26-34); Mean Corpuscular Volume 87.5 fL (80-100); Platelet Count 225 X10^3/uL (150-400)
[2025-07-28 08:52] LABS: Hemoglobin A1C% w Est Avg Glu 7.0 % (4.0-6.0)
[2025-07-28 08:54] LABS: Alanine Aminotransferase 23 IU/L (<35); Albumin 4.3 g/dL (3.5-5.0); Albumin Globulin Ratio 1.6 (1.0-2.8); Alkaline Phosphatase 65 U/L (38-126); Blood Urea Nitrogen 8 mg/dL (7-17); Calcium 9.3 mg/dL (8.4-10.2); Carbon Dioxide 24 mmol/L (22-32); Chloride 97 mmol/L (98-107); Estimated Glomerular Filt Rate > 60 mL/min (>60); Globulin 2.7 g/dL (1.7-4.1); Glucose 131 mg/dL (70-99); HEMOLYSIS < 15 (0-50); Potassium 4.1 mmol/L (3.4-5.1); Sodium 130 mmol/L (137-145); Total Protein 7.0 g/dL (6.3-8.2)
[2025-07-28 09:15] LABS: Free T3, Triiodothyronine Free 2.98 pg/mL (2.77-5.27); Free T4, Direct Thyroxine 1.70 ng/dL (0.78-2.19)
[2025-07-28 09:29] LABS: Thyroid Stimulating Hormone 0.469 uIU/mL (0.47-4.68)
[2025-07-28 11:24] LABS: Appearance Urine UA CLEAR; Bilirubin Urine UA NEGATIVE (NEGATIVE); Color Urine UA YELLOW; Glucose Urine UA NEGATIVE (Negative); Ketones Urine UA NEGATIVE (NEGATIVE); Leukocyte Esterase Urine UA TRACE (NEGATIVE); Nitrite Urine UA NEGATIVE (Negative); Occult Blood Urine UA NEGATIVE (Negative); Protein Urine UA NEGATIVE (Negative); Specific Gravity Urine UA 1.010 (1.000-1.035); Urobilinogen Urine UA 0.2 E.U./dL (0.2)
[2025-07-28 11:25] LABS: pH Urine UA 6.5 (4.5-8.0)
[2025-07-28 11:39] LABS: Culture Indicated Urine Cult Not Indicated
[2025-07-29 02:37] LABS: Cholesterol 152 mg/dL (140-199); HDL Cholesterol 64 mg/dL (40-60); Triglycerides 57 mg/dL (35-150)
== END ==
PROVIDERS: PCP Family Medicine Sports Medicine; Referring Provider Family Medicine Sports Medicine; Visit Provider Family Medicine Sports Medicine
DX: E03.9 Hypothyroidism, unspecified (principal); E11.9 Type 2 diabetes mellitus without complications; E78.5 Hyperlipidemia, unspecified; R79.9 Abnormal finding of blood chemistry, unspecified; N39.0 Urinary tract infection, site not specified; Z13.228 Encounter for screening for other metabolic disorders; Z13.29 Encounter for screening for other suspected endocrine disorder
CPT/HCPCS: 36415; 80053; 80061; 81001; 83036; 84439; 84443; 84481; 85025